=== PATIENT | male | born 1955 | race Caucasian/White ===

== ENCOUNTER 2016-06-12 18:43 | Emergency (ER) | payer BC, MEDICARE ==
[~2016-06-12] VITALS: Ht 165.1 cm; Wt 65.0 kg
[2016-06-12 18:45] VITALS: BP 205/115; PULSE 89; RESP 18; TEMP 98.6; O2SAT 95
--- NOTE | 2016-06-12 19:17 | PD ---
Physical Exam Time Seen by Provider: 19:14 Narrative 60yo M c/o R sided abd pain x couple days. Started again today at about noon. Reports nauseated, but denies vomiting. Denies fever. Denies diarrhea. Denies BM in 5-6 days. Reports dysuria. Hx of kidney stones 20 years ago. Patient stable. Patient seen in triage. Awaiting bed placement. Data Data Last Documented VS Vital Signs Date Time Temp Pulse Resp B/P Pulse Ox O2 Delivery O2 Flow Rate FiO2 06/12/16 18:45 98.6 89 18 205/115 95 MDM Supervised Visit with SAM: Coco Coleman Jun 12, 2016 19:17
[2016-06-12] MEDS ORDERED: SODIUM CHLOR 0.9% 1000 ML INJ 1,000 ML IV SCH (19:48)
[2016-06-12] MEDS ORDERED: PRIL20CA9 PO (19:53)
[2016-06-12] MEDS ORDERED: PRIM50TA5 PO (19:53)
[2016-06-12] MEDS ORDERED: QUIN1TAB11 PO (19:53)
[2016-06-12] MEDS ORDERED: VYTO10TA27 PO (19:53)
[2016-06-12] MEDS ORDERED: REBI22IN SQ (19:53)
[2016-06-12] MEDS ORDERED: PROZ40CA PO (19:53)
[2016-06-12] MEDS ORDERED: CARB200T PO (19:53)
[2016-06-12] MEDS ORDERED: LORA-392 PO (19:53)
[2016-06-12] MEDS ORDERED: BACL10TA PO (19:53)
[2016-06-12] MEDS ORDERED: MECL12.574 PO (19:53)
[2016-06-12 20:00] VITALS: O2SAT 95
[2016-06-12] MEDS ORDERED: ONDANSETRON HCL 4 MG/2 ML VIAL IVP ONE (20:00)
[2016-06-12] MEDS ORDERED: MORPHINE SULFATE 4 MG/ML INJ IV PUSH ONE ×2 (20:00→21:45)
--- NOTE | 2016-06-12 20:18 | PD ---
HPI Chief Complaint: Abdominal Pain Time Seen by Provider: 20:15 Travel History International Travel<30 days: No Contact w/Intl Traveler<30days: No Traveled to known affect area: No History of Present Illness HPI 60-year-old male that presents to the ED for evaluation of right-sided abdominal pain to wrist to his back. Per patient he has had this for the past 5 days. Per patient comes and goes. [place] Patient has a chronic history of MS and takes medications for this. Patient takes narcotic medication secondary to anxiety and muscle issues with EMS. Per patient she's had no bowel movements for the past 5 days. He is passing gas. He denies any nausea or vomiting. No fevers but states having some chills and sweats. He denies any urinary symptoms. He does tell me that he has a history of kidney stones but states the pain feels different. He still has his appendix. He denies any chest pain or shortness of breath. No bleeding of any kind. Pain per patient is 6 out of 10 and comes and goes. Per patient when he first started seem to come and go but today has become more severe. He has no allergies to medication. He has not taken anything for this. PFSH Past Medical History High Cholesterol: Yes Hypertension: Yes Medical other: Yes (Multiple Sclerosis) Tetanus Vaccination: < 5 Years Past Surgical History Surgical History: No Previous Surgery Social History Alcohol Use: No Tobacco Use: No Substance Use: No Allergies-Medications (Allergen,Severity, Reaction): Coded Allergies: No Known Allergies (Unverified , 06/12/16) Reported Meds & Prescriptions Reported Meds & Active Scripts Active Flomax (Tamsulosin HCl) 0.4 Mg Cap 0.4 Mg PO HS Bactrim DS (Sulfamethoxazole-Trimethoprim) 800-160 Mg Tab 1 Tab PO BID 7 Days Lortab (Hydrocodone-Acetaminophen) 5-325 Mg Tab 1 Tab PO Q6H PRN Reported Carbamazepine 200 Mg Tab 200 Mg PO QID Prozac (Fluoxetine HCl) 40 Mg Cap 40 Mg PO BID Prilosec (Omeprazole) 20 Mg Cap 20 Mg PO DAILY Meclizine (Meclizine HCl) 12.5 Mg Tab 12.5 Mg PO TID PRN Ativan (Lorazepam) 0.5 Mg Tab 0.5 Mg PO TID PRN Primidone 50 Mg Tab 50 Mg PO TID unsure of dose Baclofen 10 Mg Tab 10 Mg PO TID Vytorin (Ezetimibe-Simvastatin) 10-10 Mg Tab 10 Tab PO HS Quinapril (Quinapril HCl) 10 Mg Tab 10 Mg PO DAILY Rebif Inj (Interferon Beta 1a) 22 Mcg/0.5 Ml Syr 22 Mcg SQ Q 48 HOURS unsure of dose Review of Systems Except as stated in HPI: all other systems reviewed are Neg Physical Exam Narrative GENERAL: SKIN: Warm and dry. HEAD: Atraumatic. Normocephalic. EYES: Pupils equal and round. No scleral icterus. No injection or drainage. ENT: No nasal bleeding or discharge. Mucous membranes pink and moist. Tongue is midline. No uvula deviation. NECK: Trachea midline. No JVD. CARDIOVASCULAR: Regular rate and rhythm. No murmurs, S3, S4. RESPIRATORY: No accessory muscle use. Clear to auscultation. Breath sounds equal bilaterally. GASTROINTESTINAL: Abdomen soft, patient does have tenderness to palpation especially on the right lower and right upper quadrant. No Perez's sign however. Nondistended. Hepatic and splenic margins not palpable. MUSCULOSKELETAL: Extremities without clubbing, cyanosis, or edema. No obvious deformities. Full range of motion of the upper and lower extremities bilaterally. 2+ pulses bilaterally. NEUROLOGICAL: Awake and alert. No obvious cranial nerve deficits. Motor grossly within normal limits. Five out of 5 muscle strength in the arms and legs. Normal speech. PSYCHIATRIC: Appropriate mood and affect; insight and judgment normal. Data Data Last Documented VS Vital Signs Date Time Temp Pulse Resp B/P Pulse Ox O2 Delivery O2 Flow Rate FiO2 06/12/16 20:48 18 06/12/16 20:00 95 Room Air 06/12/16 18:45 98.6 89 205/115 Orders Complete Blood Count With Diff (06/12/16 19:48) Comprehensive Metabolic Panel (06/12/16 19:48) Lipase (06/12/16 19:48) Lactic Acid (06/12/16 19:48) Urinalysis - C+S If Indicated (06/12/16 19:48) Iv Access Insert/Monitor (06/12/16 19:48) Ecg Monitoring (06/12/16 19:48) Oximetry (06/12/16 19:48) Morphine Inj (Morphine Inj) (06/12/16 20:00) Ondansetron Inj (Zofran Inj) (06/12/16 20:00) Sodium Chlor 0.9% 1000 Ml Inj (Ns 1000 M (06/12/16 19:48) Ct Abd/Pel W Iv Contrast(Rout) (06/12/16 19:53) Iohexol 350 Inj (Omnipaque 350 Inj) (06/12/16 21:04) Ketorolac Inj (Toradol Inj) (06/12/16 21:45) Morphine Inj (Morphine Inj) (06/12/16 21:45) Labs Laboratory Tests Test 06/12/16 20:03 White Blood Count 12.3 TH/MM3 Red Blood Count 4.44 MIL/MM3 Hemoglobin 14.3 GM/DL Hematocrit 41.0 % Mean Corpuscular Volume 92.2 FL Mean Corpuscular Hemoglobin 32.2 PG Mean Corpuscular Hemoglobin 35.0 % Concent Red Cell Distribution Width 12.5 % Platelet Count 205 TH/MM3 Mean Platelet Volume 8.4 FL Neutrophils (%) (Auto) 89.8 % Lymphocytes (%) (Auto) 4.8 % Monocytes (%) (Auto) 5.1 % Eosinophils (%) (Auto) 0.0 % Basophils (%) (Auto) 0.3 % Neutrophils # (Auto) 11.1 TH/MM3 Lymphocytes # (Auto) 0.6 TH/MM3 Monocytes # (Auto) 0.6 TH/MM3 Eosinophils # (Auto) 0.0 TH/MM3 Basophils # (Auto) 0.0 TH/MM3 CBC Comment DIFF FINAL Differential Comment Sodium Level 139 MEQ/L Potassium Level 3.8 MEQ/L Chloride Level 100 MEQ/L Carbon Dioxide Level 29.2 MEQ/L Anion Gap 10 MEQ/L Blood Urea Nitrogen 18 MG/DL Creatinine 1.43 MG/DL Estimat Glomerular Filtration 51 ML/MIN Rate Random Glucose 127 MG/DL Lactic Acid Level 1.4 mmol/L Calcium Level 8.9 MG/DL Total Bilirubin 0.3 MG/DL Aspartate Amino Transf 18 U/L (AST/SGOT) Alanine Aminotransferase 32 U/L (ALT/SGPT) Alkaline Phosphatase 133 U/L Total Protein 7.7 GM/DL Albumin 3.7 GM/DL Lipase 127 U/L [facility] Medical Decision Making Medical Screen Exam Complete: Yes Emergency Medical Condition: Yes Medical Record Reviewed: Yes Interpretation(s) CBC & BMP Diagram 06/12/16 20:03 Last Impressions Abdomen/Pelvis CT 06/12/161952 Signed Impressions: Service Date/Time: May 20:55 - CONCLUSION: 1. Approximate 4 mm right UVJ stone causing slight hydronephrosis in the right kidney. 2. Questionable stone in the left UVJ. 3. Horseshoe kidney with multiple stones. 4. Right hepatic lobe mass does not have the appearance of a simple cyst could potentially be a hemangioma, however it is indeterminate in regards to neoplastic etiologies and further characterization with nonemergent abdominal MRI is suggested. 5. Anterior wedging of T12 and L1 vertebrae most likely chronic. Jack Loredo MD LFTS and lipase WNL Differential Diagnosis Kidney stone versus obstruction versus constipation versus gastroenteritis versus acute on chronic pain versus chronic pain versus acute abdomen versus appendicitis Narrative Course 57-year-old male that presents to the ED for evaluation of right lower abdominal pain. Patient was properly examined and was found to have signs and symptoms consistent abdominal pain. Unclear etiology at this time. This time and do recommend labs and imaging. Pain medication given IV. Fluids given as well. Labs and imaging showed 4 mm kidney stone on the right kidney with some hydronephrosis and possible kidney stone on the left. At this time patient was reassured. Patient does feel improved with pain medication. Patient was given 1 more dose of pain medication before going as he still has some discomfort. At this time patient will be discharged with prescriptions for Lortab, Bactrim as well as Flomax. Patient was told that he needs to follow up with PCP. Patient was given report about the possible hemangioma in the liver that he will require follow-up for this for nonemergent MRI. Patient is sent reasons to come back. See ED worsening symptoms. Drinking of fluids. Follow up with urologist her scientific aide [place] he does have other kidney stones that could become an issue. See ED worsening symptoms. Diagnosis Primary Impression: Kidney stone on right side Additional Impression: Kidney stone on left side Patient Instructions: Narcotic given in the ED, General Instructions Additional Instructions: Take medications as prescribed. Follow-up with PCP. See ED for any worsening symptoms. Do not drink or drive while taking pain medication. Apply ice or heat as needed for pain Med/Other Pt SpecificInfo: Prescription(s) given Scripts Tamsulosin (Flomax)0.4 Mg Cap0.4 Mg PO HS #10 CAP Ref 0 Prov:Johan Mcgrath MD 06/12/16 Sulfamethoxazole-Trimethoprim (Bactrim DS)800-160 Mg Tab1 Tab PO BID 7 Days Prov:Johan Mcgrath MD 06/12/16 Hydrocodone-Acetaminophen (Lortab)5-325 Mg Tab1 Tab PO Q6H PRN (PAIN) #20 TAB Prov:Johan Mcgrath MD 06/12/16 Disposition: 01 DISCHARGE HOME Condition: Stable Frantz Frias Jun 12, 2016 20:17
[2016-06-12 20:28] LABS: AUTOMATED NEUTROPHIL # 11.1 TH/MM3 (1.8-7.7); BASOPHIL % 0.3 % (0.0-2.0); HEMO FLAGS DIFF FINAL; LYMPH % 4.8 % (9.0-44.0); LYMPHOCYTE # 0.6 TH/MM3 (1.0-4.8); MEAN CELL VOLUME 92.2 FL (80.0-100.0); MEAN CORPUSCULAR HEMOGLOBIN 32.2 PG (27.0-34.0); MONO % 5.1 % (0.0-8.0); NEUT % 89.8 % (16.0-70.0); PLATELET COUNT 205 TH/MM3 (150-450); RED BLOOD COUNT 4.44 MIL/MM3 (4.50-5.90); RED CELL DISTRIBUTION WIDTH 12.5 % (11.6-17.2); WHITE BLOOD COUNT 12.3 TH/MM3 (4.0-11.0)
[2016-06-12 20:36] LABS: ANION GAP 10 MEQ/L (5-15); AST (GOT) 18 U/L (15-37); BICARBONATE 29.2 MEQ/L (21.0-32.0); BLOOD UREA NITROGEN 18 MG/DL (7-18); CHLORIDE 100 MEQ/L (98-107); GLOMERULAR FILTRATION RATE 51 ML/MIN (>89); POTASSIUM 3.8 MEQ/L (3.5-5.1); SODIUM (NA) 139 MEQ/L (136-145)
[2016-06-12 20:39] LABS: ALKALINE PHOSPHATASE 133 U/L (45-117); ALT (GPT) 32 U/L (12-78); TOTAL BILIRUBIN ADULT 0.3 MG/DL (0.2-1.0)
[2016-06-12] MEDS ORDERED: IOHEXOL 350 MG/ML 10 ML VIAL (for RAD DIAG) IV ONE (21:04)
--- NOTE | 2016-06-12 21:20 | RADRPT ---
EXAM DATE/TIME: 06/12/2016 20:55 [facility] COMPARISON: No previous studies available for comparison. INDICATIONS : Right sided abdominal pain that radiates to back for two weeks, no bowel movement for five days IV CONTRAST: 93 cc Omnipaque 350 (iohexol) IV ORAL CONTRAST: No oral contrast ingested. RADIATION DOSE: 8.9 CTDIvol (mGy) MEDICAL HISTORY : Hypertension. Multiple sclerosis. SURGICAL HISTORY : None. ENCOUNTER: Initial ACUITY: 2 days PAIN SCALE: 8/10 LOCATION: Right abdomen TECHNIQUE: Volumetric scanning of the abdomen and pelvis was performed. Using automated exposure control and ad justment of the mA and/or kV according to patient size, radiation dose was kept as low as reasonably achievable to obtain optimal diagnostic quality images. FINDINGS: CT Abdomen: Horseshoe kidney is present with multiple cysts the largest one on the right side measuri ng 3.5 cm in size. There is [id number] hydronephrosis in the right kidney due to an approximate 4 mm UVJ stone. There are areas of strandy densities around the proximal ureter with fluid collectio n extending to the Houston's pouch and around the head of the pancreas probably from forniceal ruptu re. There are 4 separate stones in the kidneys as well the largest measures 4-5 mm in size. There is a questionable 3-4 mm stone in the left UVJ as well. There is an approximate 2.5 cm mass in the right hepatic lobe laterally does not have the appearance of a simple cyst could be a hemangioma, however it is nonspecific. The spleen, pancreas, adrenals are unremarkable. There is no evidence for any appr eciable pathological adenopathy, free fluid, or bowel obstruction. There are old healed rib fracture s. There are anterior wedging of T12 and L1 vertebrae mostly chronic not adequately characterized. Th ere is an approximate 2.3 cm area of dense calcification adjacent to the middle of the horseshoe kidn ey partially abutting the ureter and appears to be mesenteric in origin. CT pelvis: There is no evidence for mass, abscess formation, or any significant adenopathy within the pelvis. There are scattered diverticuli mainly in the sigmoid colon without definite signs of divert iculitis. There is moderate amount of stool throughout the colon. CONCLUSION: 1. Approximate 4 mm right UVJ stone causing slight hydronephrosis in the right kidney. 2. Questionable stone in the left UVJ. 3. Horseshoe kidney with multiple stones. 4. Right hepatic lobe mass does not have the appearance of a simple cyst could potentially be a heman gioma, however it is indeterminate in regards to neoplastic etiologies and further characterization w ith nonemergent abdominal MRI is suggested. 5. Anterior wedging of T12 and L1 vertebrae most likely chronic. Jack Loredo MD on June 12, 2016 at 21:09 Board Certified Radiologist. This report was verified electronically.
[2016-06-12] MEDS ORDERED: TAMS5CAP PO (21:34)
[2016-06-12] MEDS ORDERED: BACT800T5 PO (21:34)
[2016-06-12] MEDS ORDERED: HYDR-3533 PO (21:34)
[2016-06-12] MEDS ORDERED: KETOROLAC TROMETHAMINE 30 MG/ML (IVP) VIAL IV PUSH ONE (21:45)
[2016-06-12 22:31] VITALS: RESP 18
== END 2016-06-12 22:33 | disposition home or self-care (01) ==
LOC: NEPC 18:43
DX: G35 Multiple sclerosis (principal); I10 Essential (primary) hypertension; N13.2 Hydronephrosis with renal and ureteral calculous obstruction
CPT/HCPCS: 74177; 80053; 83605; 83690; 85025; 96361; 96374; 96375; 96376; 99284; J1885; J2270; J2405; J7030; Q9967